=== PATIENT | male | born 1970 | race Caucasian/White ===

== ENCOUNTER → 2016-07-04 | Outpatient (REF) | payer BC ==
[2016-07-04 12:12] LABS: BASOPHILS % (AUTO) 1 % (0-2); EOSINOPHILS # (AUTO) 0.2 10^3uL; EOSINOPHILS % (AUTO) 3 % (0-4); LYMPHOCYTES # (AUTO) 2.1 X10^3; MEAN CORPUSCULAR HGB CONC 34.5 g/dL (31.0-37.0); MEAN CORPUSCULAR VOLUME 87 FL (80-100); MEAN PLATELET VOLUME 11.3 FL (6.0-9.5); MONOCYTES # (AUTO) 0.4 X10^3; MONOCYTES % (AUTO) 7 % (3-11); NEUTROPHILS % (AUTO) 53 % (51-67); PLATELET COUNT 185 10^3uL (150-450); WHITE BLOOD COUNT 5.72 10^3uL (4.0-11.0)
[2016-07-04 12:22] LABS: ALBUMIN 4.5 g/dL (3.4-5.0); ALKALINE PHOSPHATASE 115 U/L (38-126); ANION GAP 15.4 MEQ/L (3-15); BUN/CREATININE RATIO 14 (10-20); CALCULATED IONIZED CALCIUM 4.1 mg/dL (3.8-4.6); TOTAL PROTEIN 7.2 g/dL (6.4-8.5)
== END ==
LOC: LAB 10:56
PROVIDERS: ATTEND Nurse Practitioner Family
DX: Z13.6 Encounter for screening for cardiovascular disorders (principal); R40.0 Somnolence
CPT/HCPCS: 80053; 80061; 84443; 85025

== ENCOUNTER → 2016-08-08 | Outpatient (REF) | payer BC ==
[~2016-08-08] MED LIST: ALPR1TAB2 PO; CPR500T PO; HYDR-3881 PO; IBP200T PO; METR500T17 PO; PSYL1PAC10 PO; TAMS-8 PO; trazadone PO
[2016-08-08 10:44] LABS: ANION GAP 18.9 MEQ/L (3-15)
== END ==
LOC: LAB 09:56
PROVIDERS: ATTEND Nurse Practitioner Family
DX: I10 Essential (primary) hypertension (principal); R73.9 Hyperglycemia, unspecified
CPT/HCPCS: 80048; 83036